=== PATIENT | female | born 1970 | race Two or more races ===

== ENCOUNTER 2023-05-08 15:38 | Emergency (ER) | payer MEDICARE, MEDICAID ==
[~2023-05-08] VITALS: Ht 152.4 cm; Wt 61.2 kg
[2023-05-08 15:48] VITALS: BP 152/77; PULSE 67; RESP 18; O2SAT 98
[2023-05-08] MEDS ORDERED: KETOROLAC TROMETH 60MG/2ML VIAL IM ONE (19:15)
[2023-05-08] MEDS ORDERED: CYCLOBENZAPRINE HCL 10 MG TAB PO ONE (19:15)
[2023-05-08] MEDS ORDERED: CYCL-839 PO (19:26)
[2023-05-08] MEDS ORDERED: NAP500T PO (19:26)
== END 2023-05-08 20:25 | disposition home or self-care (01) ==
LOC: ER 15:38
DX: S16.1XXA Strain of muscle, fascia and tendon at neck level, initial encounter (principal); S09.8XXA Other specified injuries of head, initial encounter; W11.XXXA Fall on and from ladder, initial encounter; Y93.89 Activity, other specified; Y92.89 Other specified places as the place of occurrence of the external cause; Y99.8 Other external cause status
CPT/HCPCS: 70450; 72125

== ENCOUNTER 2023-06-14 13:13 | Emergency (ER) | payer MEDICARE, MEDICAID ==
[~2023-06-14] VITALS: Ht 152.4 cm; Wt 61.8 kg
[~2023-06-14 13:13] MED LIST: CYCL-839 PO; NAP500T PO
[2023-06-14 16:16] VITALS: BP 95/58; PULSE 78; RESP 14; TEMP 97.9; O2SAT 95
== END 2023-06-14 17:29 | disposition left against medical advice (07) ==
LOC: ER 13:13
DX: B35.1 Tinea unguium (principal); Z53.21 Procedure and treatment not carried out due to patient leaving prior to being seen by health care provider